=== PATIENT | male | born 1980 | race African-American/Black ===

== ENCOUNTER 2017-01-28 08:52 | Emergency (ER) | payer OTHER ==
[~2017-01-28] VITALS: Ht 177.8 cm; Wt 81.0 kg
[~2017-01-28 08:52] MED LIST: OXCA300T31 PO
[2017-01-28 09:15] VITALS: BP 118/79
[2017-01-28] MEDS ORDERED: KETOROLAC 60MG/2ML VIAL IM ONE (09:15)
== END 2017-01-28 11:09 | disposition home or self-care (01) ==
LOC: ER 09:10
DX: R07.89 Other chest pain (principal); M54.6 Pain in thoracic spine; F12.10 Cannabis abuse, uncomplicated; Z72.0 Tobacco use; X58.XXXA Exposure to other specified factors, initial encounter; Y93.89 Activity, other specified; Y92.89 Other specified places as the place of occurrence of the external cause; Y99.8 Other external cause status
CPT/HCPCS: 36415; 71020; 84484; 85379; 93005; 96372; 99285; J1885

== ENCOUNTER 2017-03-16 22:23 | Emergency (ER) | payer OTHER | END 2017-03-17 01:27 | disposition left against medical advice (07) | LOC: ER 22:23 | DX: M54.5 Low back pain (principal); Z53.21 Procedure and treatment not carried out due to patient leaving prior to being seen by health care provider ==

== ENCOUNTER 2017-03-17 09:35 | Emergency (ER) | payer OTHER ==
[~2017-03-17] VITALS: Ht 157.5 cm; Wt 78.0 kg
[2017-03-17] MEDS ORDERED: KETOROLAC 60MG/2ML VIAL IM ONE (10:45)
[2017-03-17] MEDS ORDERED: DIAZEPAM 5 MG TABLET PO ONE (10:45)
[2017-03-17 10:50] VITALS: BP 130/87
== END 2017-03-17 11:37 | disposition home or self-care (01) ==
LOC: ER 10:36
DX: M54.42 Lumbago with sciatica, left side (principal); M54.41 Lumbago with sciatica, right side; F12.10 Cannabis abuse, uncomplicated; R05 Cough; R56.9 Unspecified convulsions
CPT/HCPCS: 96372; 99283; J1885; Z7610

== ENCOUNTER 2018-04-20 01:13 | Emergency (ER) | payer OTHER ==
[~2018-04-20] VITALS: Ht 177.8 cm; Wt 77.0 kg
[2018-04-20] MEDS ORDERED: HYDROCODONE/ACETAMINOPHEN 5/325MG TABLET PO STA (04:59)
[2018-04-20] MEDS ORDERED: KETOROLAC 60MG/2ML VIAL IM STA (04:59)
[2018-04-20 05:17] VITALS: BP 111/56
== END 2018-04-20 05:18 | disposition home or self-care (01) ==
LOC: ER 01:22
DX: M79.604 Pain in right leg (principal); M54.31 Sciatica, right side; Z87.828 Personal history of other (healed) physical injury and trauma
CPT/HCPCS: 96372; 99283; J1885; Z7610

== ENCOUNTER 2018-08-03 17:41 | Emergency (ER) | payer OTHER ==
[~2018-08-03] VITALS: Ht 177.8 cm; Wt 73.0 kg
[2018-08-04 00:25] VITALS: BP 118/60
[2018-08-04] MEDS ORDERED: KETOROLAC 60MG/2ML VIAL IM STA (00:25)
[2018-08-04] MEDS ORDERED: KETOROLAC 30MG/ML VIAL ONE (01:26)
[2018-08-04 01:34] LABS: BASOPHILS % 0.7 % (0.0-2.0); EOSINOPHILS % 5.7 % (0.0-5.0); HEMATOCRIT. 44.4 % (42.0-52.0); HEMOGLOBIN. 14.7 g/dL (14.0-18.0); MEAN CORPUSCULAR HEMOGLOBIN 27.9 pg (28.0-32.0); MEAN CORPUSCULAR VOLUME 84.5 fL (80.0-94.0); MEAN PLATELET VOLUME 9.3 fl (7.4-10.4); NEUTROPHILS % 55.6 % (40.0-76.0); PLATELET 177 x1000/uL (130-400); RED BLOOD CELL COUNT 5.25 mill/uL (4.7-6.1); RED CELL DISTRIBUTION WIDTH 14.8 % (11.6-14.6)
[2018-08-04 01:38] LABS: CHLORIDE 103 mEq/L (98-107)
[2018-08-04] MEDS ORDERED: HALOPERIDOL LACTATE 5MG/ML VIAL IM ONE (05:04)
== END 2018-08-04 03:59 | disposition left against medical advice (07) ==
LOC: ER 17:41
DX: R06.02 Shortness of breath (principal); R07.89 Other chest pain; R45.6 Violent behavior; F17.210 Nicotine dependence, cigarettes, uncomplicated; Z71.6 Tobacco abuse counseling; G40.909 Epilepsy, unspecified, not intractable, without status epilepticus
CPT/HCPCS: 36415; 71045; 80053; 85025; 93005; 99284; 99406; J1630; J1885

== ENCOUNTER 2018-09-06 14:57 | Emergency (ER) | payer OTHER ==
[~2018-09-06] VITALS: Ht 177.8 cm; Wt 75.0 kg
[2018-09-06 16:06] VITALS: BP 117/77
== END 2018-09-06 19:02 | disposition left against medical advice (07) ==
LOC: ER 14:57
DX: Z53.21 Procedure and treatment not carried out due to patient leaving prior to being seen by health care provider (principal)

== ENCOUNTER 2018-09-29 02:20 | Emergency (ER) | payer OTHER ==
[~2018-09-29] VITALS: Ht 167.6 cm; Wt 76.0 kg
[2018-09-29 03:20] VITALS: BP 114/75
[2018-09-29] MEDS ORDERED: KETOROLAC 30MG/ML VIAL IV ONE (03:30)
== END 2018-09-29 03:57 | disposition home or self-care (01) ==
LOC: ER 02:20
DX: S20.211A Contusion of right front wall of thorax, initial encounter (principal); V49.49XA Driver injured in collision with other motor vehicles in traffic accident, initial encounter; Y93.89 Activity, other specified; Y92.410 Unspecified street and highway as the place of occurrence of the external cause; F12.90 Cannabis use, unspecified, uncomplicated
CPT/HCPCS: 71045; 96374; 99283; J1885; Z7610

== ENCOUNTER 2019-06-12 22:34 | Emergency (ER) | payer OTHER ==
[~2019-06-12] VITALS: Ht 180.3 cm; Wt 82.0 kg
[2019-06-12] MEDS ORDERED: SODIUM CHLORIDE 0.9% 1,000 ML IV ONE (23:04)
[2019-06-12] MEDS ORDERED: LORAZEPAM 2MG/ML CPJ IV ONE (23:15)
[2019-06-12 23:37] VITALS: BP 110/71
== END 2019-06-12 23:53 | disposition left against medical advice (07) ==
LOC: ER 22:34
DX: R45.1 Restlessness and agitation (principal); F91.8 Other conduct disorders
CPT/HCPCS: 99284; J7030

== ENCOUNTER 2020-07-20 18:51 | Emergency (ER) | payer OTHER ==
[~2020-07-20] VITALS: Ht 177.8 cm; Wt 74.0 kg
[2020-07-20 19:14] VITALS: BP 102/74
[2020-07-20] MEDS ORDERED: KETOROLAC 60MG/2ML VIAL IM ONE (20:45)
== END 2020-07-20 21:17 | disposition home or self-care (01) ==
LOC: ER 18:51
DX: R07.81 Pleurodynia (principal); M25.511 Pain in right shoulder; M25.551 Pain in right hip; G40.909 Epilepsy, unspecified, not intractable, without status epilepticus
CPT/HCPCS: 71046; 93005; 99283

== ENCOUNTER 2020-11-06 19:58 | Emergency (ER) | payer OTHER ==
[2020-11-06 20:02] VITALS: BP 123/73
== END 2020-11-06 21:23 | disposition left against medical advice (07) ==
LOC: ER 19:58
DX: Z53.21 Procedure and treatment not carried out due to patient leaving prior to being seen by health care provider (principal); R07.9 Chest pain, unspecified; R42 Dizziness and giddiness
CPT/HCPCS: 93005